=== PATIENT | male | born 1950 | race Caucasian/White ===

== ENCOUNTER 2023-07-24 07:33 | Outpatient (OUT) | payer MEDICARE, SELFPAY ==
[2023-07-24 07:51] LABS: Basophils Absolute Auto 0.1 10^3/uL (0.0-0.1); Basophils Percent Auto 0.7 % (0.2-2.0); Eosinophils Absolute Auto 0.1 10^3/uL (0.0-0.7); Eosinophils Percent Auto 1.7 % (0.9-7.0); Hematocrit 41.7 % (42.0-54.0); Hemoglobin 14.4 g/dL (14.0-18.0); Immature Granulocytes Abs Auto 0.06 10^3/uL (0.00-0.03); Immature Granulocytes Pct Auto 0.7 % (0.0-0.5); Lymphocytes Absolute Auto 2.2 10^3/uL (1.2-3.8); Lymphocytes Percent Auto 26.5 % (20.5-60.0); Mean Corpuscular HGB Conc 34.5 g/dL (29.9-35.2); Mean Corpuscular Hemoglobin 30.4 pg (25.9-34.0); Mean Platelet Volume 10.4 fL (9.5-13.5); Monocytes Absolute Auto 0.8 10^3/uL (0.3-0.8); Monocytes Percent Auto 9.2 % (1.7-12.0); Neutrophils Percent Auto 61.2 % (43.0-75.0); Platelet Count 251 10^3/uL (150-450); Red Blood Count 4.74 10^6/uL (4.70-6.10); White Blood Count 8.2 10^3/uL (4.0-11.0)
[2023-07-24 08:12] LABS: Estimated Average Glucose 134 mg/dL; Glycohemoglobin A1C 6.3 % (4.5-6.2)
[2023-07-24 08:17] LABS: Microalbumin Urine Random 12.9 mg/dL (<=30.0)
[2023-07-24 08:25] LABS: Anion Gap 12.1; BUN Creatinine Ratio 9.7; Calcium 8.3 mg/dL (8.5-10.1); Carbon Dioxide 28.9 mmol/L (21.0-32.0); Chloride 104 mmol/L (98-107); Chol HDL Ratio 2.3; Cholesterol 139 mg/dL (<=200); Estimated GFR (African America >60 (>=60); Estimated GFR (Non-African Ame >60 (>=60); Glucose 184 mg/dL (74-106); HDL Cholesterol 60 mg/dL (40-60); LDL Cholesterol Calculated 59.6 mg/dL; Sodium 141 mmol/L (136-145); Triglycerides 97 mg/dL (<=150); VLDL CHOLESTEROL 19.4 mg/dL
--- OUTSIDE RECORDS SUMMARY | 2023-07-29 05:25 | XMS_ITS | CCD ---
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 Name Role Phone ELISA, DR PORTILLO Primary Care Unavailable ELISA, DR PORTILLO Admitting Unavailable ELISA, DR PORTILLO Attending Unavailable ELSIA, DR PORTILLO Attending Unavailable ELISA, DR PORTILLO Consulting Unavailable ELISA, DR PORTILLO Primary Care Unavailable BALL, DR PORTILLO Admitting Unavailable ELISA, DR PORTILLO Primary Care Unavailable MISC, DR BALL Attending Unavailable MISC, DR BALL Consulting Unavailable MISC, DR BALL Admitting Unavailable ELISA, DR PORTILLO Primary Care Unavailable ELISA, DR PORTILLO Admitting Unavailable ELISA, DR PORTILLO Attending Unavailable Elisa, Byron Unavailable Medications Current Medications Medication Drug Class(es) Dates Sig (Normalized) Sig (Original) amLODIPine 5 mg oral tablet (2 sources) Dihydropyridine Calcium Channel Marium take 1 tablet by mouth once daily amLODIPine Besylate 5 MG TAKE 1 TABLET BY MOUTH EVERY DAY Active atenolol 50 mg oral tablet (2 sources) beta-Adrenergic Marium take 1 tablet by mouth every twenty-four hours Atenolol 50 MG 1 tablet Orally Once a day Active glimepiride 2 mg oral tablet (2 sources) Sulfonylurea Glimepiride 2 MG TAKE 1 TABLET BY MOUTH 30 MINUTES BEFORE FIRST MEAL OF DAY Active hydroCHLOROthiazide 12.5 mg / lisinopril 20 mg oral tablet (2 sources) Thiazide Diuretic, Angiotensin Converting Enzyme Inhibitor take 2 tablets by mouth once daily Lisinopril-hydr oCHLOROthiazide 20-12.5 MG TAKE 2 TABLETS BY MOUTH DAILY Active metFORMIN hydrochloride 1000 mg oral tablet (2 sources) Biguanide take 1 tablet by mouth every twelve hours metFORMIN HCl 1000 MG 1 tablet with a meal Orally twice a day Active sildenafil 100 mg oral tablet (2 sources) Phosphodiesterase 5 Inhibitor Start: 2 take 1 tablet by mouth every twenty-four hours Viagra 100 MG 1 tablet as needed Orally Once a day for 0 days Jul, Active Completed/Discontinued Medications Medication Drug Class(es) Dates Sig (Normalized) Sig (Original) azithromycin 250 mg oral tablet (2 sources) Macrolide Antimicrobial Start: 07-30-2022 take 1 tablet by mouth once daily Azithromycin 250 MG azithromycin 250mg, 2 (two) Tablet today followed by 1 daily # 6, 07/30/2022, No Refill. Active Oral today followed by 1 daily for 5 Jul, Not-Taking/PRN bacitracin 0.5 unt/mg topical ointment (2 sources) Start: 02-15-2018 Bacitracin 500 UNIT/GM 1 application to affected area Externally Once a day for 7 days Feb, Not-Taking/PRN cephalexin 500 mg oral capsule (2 sources) Cephalosporin Antibacterial Start: 02-15-2018 take 1 capsule by mouth every six hours Cephalexin 500 MG 1 capsule Orally every 6 hrs for 10 day(s) Feb, Not-Taking/PRN Isosorbide Dinitrate (2 sources) Nitrate Vasodilator Isosorbide Dinitrate Not-Taking/PRN triamcinolone acetonide 1 mg/ml topical cream (2 sources) Corticosteroid Start: 02-15-2018 Triamcinolone Acetonide 0.1 % 1 application to affected area Externally Twice a day for 7 days Feb, Not-Taking/PRN Problems Active Problems Problem Classification Problem Date Documented Da te Episodic/Chronic Diabetes mellitus with complications (4 sources) Type 2 diabetes mellitus with hyperglycemia; Translations: [Type 2 diabetes mellitus] Onset: 07-26-2022 Chronic Disorders of lipid metabolism (7 sources) Mixed hyperlipidemia; Translations: [Hypercholesterolem ia] Onset: 07-21-2022 Chronic Essential hypertension (4 sources) Essential (primary) hypertension; Translations: [Essential hypertension] Onset: 07-26-2022 Chronic Genitourinary symptoms and ill-defined conditions (1 source) Nocturia Episodic Hyperplasia of prostate (3 sources) Nocturia due to benign prostatic hypertrophy; Translations: [Benign prostatic hyperplasia with lower urinary tract symptoms] Chronic Other aftercare (1 source) 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; Translations: [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 CURRENT DRUG THERAPY] Onset: 07-26-2022 Episodic Other screening for suspected conditions (not mental disorders or infectious disease) (2 sources) Encounter for screening for malignant neoplasm of prostate; Translations: [ENC SCREEN MALIG NEOPLASM PROSTATE] Onset: 07-26-2022 Episodic Residual codes; unclassified (1 source) Procedure and treatment not carried out because of patient's decision for unspecified reasons Episodic Unclassified (2 sources) CONTACT W/AND (SUSP) EXPOS COVID-19; Translations: [CONTACT W/AND (SUSP) EXPOS COVID-19] Onset: 08-14-2021 Viral infection (1 source) COVID-19; Translations: [COVID-19] Onset: 08-14-2021 Past or Other Problems Problem Classification Problem Date Documented Da te Episodic/Chronic Unclassified (1 source) CONTACT W/AND (SUSP) EXPOS COVID-19; Translations: [CONTACT W/AND (SUSP) EXPOS COVID-19] Onset: 08-08-2021 Results Test Name Value Interpretation Reference Range Facil ity CBC AUTO DIFFon 07-21-2022 BASO # 0.1 103/ul Normal 0.0-0.[address] [facility] Comment on above: Performed By: #### C BC #### [facility] [address] [place] [address] Dr. Eligio Carr Basophils/100 WBC (Bld) 0.8 % Normal 0.2-2.0 [facility] Comment on above: Performed By: #### C BC #### [facility] [address] [place] [address] Dr. Eligio Carr EO # 0.2 103/ul Normal 0.0-0.7 [facility] Comment on above: Performed By: #### C BC #### [facility] [address] [place] [address] Dr. Eligio Carr Eosinophils/100 WBC (Bld) 2.3 % Normal 0.9-7.0 [facility] Comment on above: Performed By: #### C BC #### [facility] [address] [place] [address] Dr. Eligio Carr Erythrocyte distribution wid th (RBC) [Ratio] 12.9 % Normal 11.0-15.0 [facility] Comment on above: Performed By: #### C BC #### [facility] [address] [address] [address] Eligio Carr Hematocrit (Bld) [Volume fraction] 44.7 % Normal 4 2.0-54.0 [facility] Comment on above: Performed By: #### C BC #### [facility] [address] [address] [address] Eligio Carr Hemoglobin (Bld) [Mass/Vol] 15.8 g/dL Normal 14.0-18. 0 [facility] Comment on above: Performed By: #### C BC #### [facility] [address] [address] [address] Eligio Carr IG # 0.05 10e3/ul Critically high 0.00-0.03 [facility] Comment on above: Performed By: #### C BC #### [facility] [address] [place] [address] Dr. Eligio Carr IG % 0.6 % Critically high 0.0-0.5 [facility] Comment on above: Performed By: #### C BC #### [facility] [address] [place] [address] Dr. Eligio Carr LYMPH # 2.1 103/ul Normal 1.2-3.8 [facility] Comment on above: Performed By: #### C BC #### [facility] [address] [place] [address] Dr. Eligio Carr Lymphocytes/100 WBC (Bld) 25.5 % Normal 20.5-60.0 [facility] Comment on above: Performed By: #### C BC #### [facility] [address] [place] [address] Dr. Eligio Carr MANUAL DIFF REQ NO Normal The [facility] Comment on above: Performed By: #### C BC #### [facility] [address] [place] [address] Dr. Eligio Carr MCH (RBC) [Entitic mass] 30.7 pg Normal 25.9-34.0 [facility] Comment on above: Performed By: #### C BC #### [facility] [address] [address] [address] Eligio Carr MCHC (RBC) [Mass/Vol] 35.3 g/dL Critically high 29.9-35.2 [facility] Comment on above: Performed By: #### C BC #### [facility] [address] [place] [address] Dr. Eligio Carr MCV (RBC) [Entitic vol] 87.0 fL Normal 80.0-94.0 [facility] Comment on above: Performed By: #### C BC #### [facility] [address] [place] [address] Dr. Eligio Carr MONO # 0.7 103/ul Normal 0.3-0.[address] [facility] Comment on above: Performed By: #### C BC #### [facility] [address] [place] [address] Dr. Eligio Carr Monocytes/100 WBC (Bld) 8.8 % Normal 1.7-12.0 [facility] Comment on above: Performed By: #### C BC #### [facility] [address] [place] [address] Dr. Eligio Carr NEUT # 5.1 103/ul Normal 1.4-6.5 [facility] Comment on above: Performed By: #### C BC #### [facility] [address] [place] [address] Dr. Eligio Carr Neutrophils/100 WBC (Bld) 62.0 % Normal 43.0-75.0 [facility] Comment on above: Performed By: #### C BC #### [facility] [address] [place] [address] Dr. Eligio Carr Platelet mean volume (Bld) [ Entitic vol] 10.3 fL Normal 9.5-13.5 The [facility] Comment on above: Performed By: #### C BC #### [facility] [address] [place] [address] Dr. Eligio Carr PLT 226 103/ul Normal 150-450 [facility] Comment on above: Performed By: #### C BC #### [facility] [address] [address] [address] Eligio Carr RBC 5.14 106/ul Normal 4.70-6.10 [facility] Comment on above: Performed By: #### C BC #### [facility] [address] [place] [address] Dr. Eligio Carr WBC 8.3 103/ul Normal 4.0-11.0 [facility] Comment on above: Performed By: #### C BC #### [facility] [address] [place] [address] Dr. Eligio Carr DIRECT LDLon 07-21-2022 Cholesterol in LDL [Mass/Vol] 60 mg/dL Normal [facility] Comment on above: Performed By: #### B LUISA DLDL #### [facility] [address] [place] [address] Dr. Eligio Carr DLDL NORMAL SEE BELOW Normal [facility] Comment on above: Result Comment: <100 mg/dl OPTIMAL 100 - 129 mg/dl NEAR OR ABOVE OPTIMAL 130 - 159 mg/dl BORDERLINE HIGH 160 - 189 mg/dl HIGH >190 mg/dl VERY HIGH Performed By: #### B LUISA DLDL #### [facility] [address] [place] [address] Dr. Eligio Carr GLYCOHEMOGLOBIN A1Con 2021 ADA RECOMMENDATION SEE BELOW Normal The [facility] Comment on above: Result Comment: ADA RECOMMENDED LIMIT 4.0 - 6.0 ADA THERAPEUTIC TARGET < 7.0 ACTION SUGGESTED > 7.0 Performed By: #### A 1C #### [facility] [address] [place] [address] Dr. Eligio Carr Glucose [Mass/Vol] 128 mg/dL Normal The [facility] Comment on above: Performed By: #### A 1C #### [facility] [address] [place] [address] Dr. Eligio Carr HbA1c (Bld) [Mass fraction] 6.1 % Normal 4.5-6.2 [facility] Comment on above: Performed By: #### A 1C #### [facility] [address] [place] [address] Dr. Eligio Carr MICROALBUMIN, RAND URon 12- mALB 17.4 mg/L Normal <=30.0 [facility] Comment on above: Performed By: #### M ALBR #### [facility] [address] [address] [address] Eligio Carr PROF CHEM 8 (BAS METB)on Anion gap [Moles/Vol] 11.7 mmol/L Normal [facility] Comment on above: Performed By: #### B MP, DLDL #### [facility] [address] [address] [address] Eligio Carr Calcium [Mass/Vol] 8.7 mg/dL Normal 8.5-10.1 [facility] Comment on above: Performed By: #### B MP, DLDL #### [facility] [address] [place] [address] Dr. Eligio Carr Chloride [Moles/Vol] 99 mmol/L Normal 98-107 [facility] Comment on above: Performed By: #### B MP, DLDL #### [facility] [address] [address] [address] Eligio Carr CO2 [Moles/Vol] 29.3 mmol/L Normal 21.0-32.0 [facility] Comment on above: Performed By: #### B MP, DLDL #### [facility] [address] [address] [address] Eligio Carr Creatinine [Mass/Vol] 1.02 mg/dL Normal 0.70-1.30 [facility] Comment on above: Performed By: #### B MP, DLDL #### [facility] [address] [address] [address] Eligio Carr EGFR-AF MALDIVIAN >60 Normal >=60 [facility] Comment on above: Performed By: #### B MP, DLDL #### [facility] [address] [place] [address] Dr. Eligio Carr EGFR-NON AF MALDIVIAN >60 Normal >=60 [facility] Comment on above: Performed By: #### B MP, DLDL #### [facility] [address] [address] [address] Eligio Carr Glucose [Mass/Vol] 179 mg/dL Critically high 74-106 [facility] Comment on above: Performed By: #### B MP, DLDL #### [facility] [address] [address] [address] Eligio Carr Potassium [Moles/Vol] 4.0 mmol/L Normal 3.5-5.1 [facility] Comment on above: Performed By: #### B MP, DLDL #### [facility] [address] [address] [address] Eligio Carr Sodium [Moles/Vol] 136 mmol/L Normal 136-145 [facility] Comment on above: Performed By: #### B MP, DLDL #### [facility] [address] [place] [address] Dr. Eligio Carr Urea nitrogen [Mass/Vol] 11.0 mg/dL Normal 7.0-18.0 [facility] Comment on above: Performed By: #### B MP, DLDL #### [facility] [address] [address] [address] Eligio Carr Urea nitrogen/Creatinine [Mass ratio] 10.8 mg/mg Normal [facility] Comment on above: Performed By: #### B MP, DLDL #### [facility] [address] [place] [address] Dr. Eligio Carr Covid-19 PCR (CVDTB)on 07-12 SARS-CoV-2 (COVID-19) RNA JOSE+probe Ql (Unsp spec) Detected Critically abnormal NOT DETECTED [facility] Comment on above: Result Comment: This test is not yet approved or cleared by the [place] FDA. When there are no FDA-approved or cleared tests available, and other criteria are met, FDA can make tests available under an emergency access mechanism called an Emergency Use Authorization (EUA). The EUA for this test is supported by the Rodent [employer] Worker of Health and Human Service's (HHS's) declaration that circumstances exist to justify the emergency use of in vitro diagnostics for the detection and/or diagnosis of the virus that causes COVID-19. This EUA will remain in effect (meaning this test can be used) for the duration of the COVID-19 declaration justifying emergency of IVDs, unless it is terminated or revoked by FDA (after which the test may no longer be used). Performed By: #### C [facility] #### [facility] [address] [place] [address] Dr. Eligio Carr Vital Signs Date Time Vital Sign Value Performing Clinician Facility 07-20-2023 08:30-0500 Body height 180.34 cm Byron Pérez Other [facility] Other 07-20-2023 08:30-0500 Body mass index (BMI) [Ratio] 37.65 kg/m2 Byron Pérez Other [facility] Other 07-20-2023 08:30-0500 Body weight 122.47 kg Byron Pérez Other [facility] Other 07-20-2023 08:30-0500 Diastolic blood pressure 90 mm[Hg] Byron Elisa Other [facility] Other 07-20-2023 08:30-0500 Respiratory rate 12 /min Byron Pérez Other [facility] Other 07-20-2023 08:30-0500 Systolic blood pressure 166 mm[Hg] Byron Elisa Other [facility] Other Encounters Encounter Date Encounter Type Care Provider Facility Start: 07-27-2023 End: 07-27-2023 ambulatory Byron Elisa Other [facility] Other Start: 07-27-2023 Telephone encounter [facility] Start: 07-20-2023 End: 07-20-2023 ambulatory Byron Elisa Other [facility] Other Start: 07-20-2023 Patient encounter procedure [facility] Start: 07-21-2022 End: 07-22-[address] BYRON PÉREZ Facility:[facility] Start: 04-03-[address] BYRON PÉREZ Facili ty:[facility] Start: 02-12-[address] BYRON Mccarthy ty:[facility] Start: 08-08-2021 End: 08-08-[address] BYRON PÉREZ Facility:[facility] Procedures Date Procedure Procedure Detail Performing Clinician Start: 07-21-[address] FERNANDEZ IN ELISA Comment on above: Performed By: #### P [facility] #### [facility] [address] [place] [address] Dr. Eligio Carr Immunizations Immunization Date Immunization Notes Care Provider Fa jayy 07-21-2018 influenza virus vaccine, split virus (incl. purified surface antigen) Byron P[facility]rez Other [facility] Other 05-27-2017 influenza virus vaccine, split virus (incl. purified surface antigen) Byron Pérez Other [facility] Other 06-25-2015 pneumococcal conjuga te vaccine, 13 valent Byron Pérez Other [facility] Other 06-16-2014 influenza virus vaccine, split virus (incl. purified surface antigen) Byron Pérez Other [facility] Other 06-15-2013 pneumococcal polysaccharide vaccine, 23 valent Byron Pérez Other [facility] Other 06-15-2013 tetanus and diphther ia toxoids, adsorbed, preservative free, for adult use (5 Lf of tetanus toxoid and 2 Lf of diphtheria toxoid) Byron Pérez Other [facility] Other Payers Date Payer Category Payer Medicare [id number] 1961 Self-pay [id number] 1961 Unknown [id number] 1950 Unknown [id number] [id number] 1950 Unknown [id number] [id number] 1950 Unknown [id number] [id number] 1950 Unknown [id number] [id number] Social History Date Type Detail Facility Unknown if ever smoked [facility] Other Sex Assigned At Sex Assigned At Bir th [facility] Other Evaluation note 07-20-2023 Note Date & Type Note Facility 07-20-2023 Evaluation note Encounter Date Diagnosis Assessment Notes Jul, Medicare annual wellness visit, subsequent (ICD-10 - Z00.00) Personalized health advice was given to the beneficiary including a written plan for screenings discussed and provided. Advanced care planning reviewed and/or information given as requested. Additional counseling was provided here today in regards to, [ ]. The above visit was performed by [ ], under direct supervision of [ ]. Document reviewed and amended by provider signed below. Jul, Primary hypertension (ICD-10 - I10) This patient is instructed to consume a healthy, low-fat, low-salt diet. They are also encouraged to continue exercise to achieve/maintain a normal BMI. Patient is instructed on home BP measurements: - rest for 5 minutes w/o talking- positioned w/ feet on floor and arm supported- average best 2/3 readings w/ goal < 135/85 Stop in office after couple weeks for recheck Jul, Hypercholesteremia (ICD-10 - E78.00) Instructed on diet and exercise.Discusse d the beneficial effects of lowering cholesterol in reducing the risk for cerebrovascular and cardiovascular disease. Jul, Type 2 diabetes mellitus with hyperglycemia, without long-term current use of insulin (ICD-10 - E11.65) This patient is following a comprehensive diabetic treatment plan. They are checking their feet daily for calluses and nonhealing ulcers. They are being seen for yearly dilated eye examinations. Goals: SBP less than 130, LDL less than 100, FBS less than 140, A1C less than 7%. They are checking their BS daily, will which are reviewed at the office visit. Continue regular routine monitoring of A1C,] Microalbumin, Dilated eye exam and Foot exam Jul, Nocturia (ICD-10 - R35.1) Jul, Benign prostatic hyperplasia with lower urinary tract symptoms (ICD-10 - N40.1) Symptoms tolerable Denies dysuria or hematuria Jul, Screening PSA (prostate specific antigen) (ICD-10 - Z12.5) Yearly PSA. He is aware that PSA can be elevated w/ cancer, infection and enlarged prostates. If his level is elevated, while there are many causes, it is required to r/o cancer. He would be referred to Urology for MRI and TRUS/bx or possibly continued monitoring. He is agreeable to this plan of action Jul, Colon cancer screening declined (ICD-10 - Z53.20) [facility] Other Evaluation note Note Date & Type Note Facility Evaluation note No Information [email or web address] Other History general Narrative - Reported Note Date & Type Note Facility History general Narrative - Reported Type Medical History diabetes mallitus Medical History hypertension Surgical History detached retina Surgical History cyst removal Hospitalization History see surgical history [facility] Other Summary Purpose Family History No Family History Records Found Advance Directives No Advanced Directives Records Found Additional Source Comments (unrecognized sect ion and content) No Status Records Found INFORMATION SOURCE (unrecogn ized section and content) DATE CREATED AUTHOR 08/01/2022 The Ekaterina maier REASON FOR VISIT (unrecogniz ed section and content) [facility] results FOR RECORDS PERTAINING TO PATIENTS WHO ARE OR HAVE BEEN ENROLLED IN A CHEMICAL DEPENDENCY/SUBSTANCEABUSE PROGRAM, SOME INFORMATION MAY BE OMITTED. This clinical summary was aggregated from multiple sources. Caution should be exercised in using it in the provision of clinical care. This summary normalizes information from multiple sources, and as a consequence, information in this document may materially change the coding, format and clinical context of patient data. In addition, data may be omitted in some cases. CLINICAL DECISIONS SHOULD BE BASED ON THE PRIMARY CLINICAL RECORDS. [facility]. provides no warranty or guarantee of the accuracy or completeness of information in this document.
== END 2023-07-24 07:34 | disposition home or self-care (01) ==
LOC: LAB 07:33
PROVIDERS: PCP Internal Medicine; Visit Provider Internal Medicine
DX: E78.00 Pure hypercholesterolemia, unspecified (principal); E11.65 Type 2 diabetes mellitus with hyperglycemia; I10 Essential (primary) hypertension; Z12.5 Encounter for screening for malignant neoplasm of prostate
CPT/HCPCS: 36415; 80048; 80061; 82043; 83036; 85025; G0103

== ENCOUNTER 2024-08-15 07:49 | Outpatient (OUT) | payer MEDICARE, SELFPAY ==
[2024-08-15 08:11] LABS: Basophils Absolute Auto 0.1 10^3/uL (0.0-0.1); Basophils Percent Auto 0.8 % (0.2-2.0); Eosinophils Absolute Auto 0.3 10^3/uL (0.0-0.7); Eosinophils Percent Auto 3.6 % (0.9-7.0); Hematocrit 43.4 % (42.0-54.0); Hemoglobin 15.5 g/dL (14.0-18.0); Immature Granulocytes Abs Auto 0.04 10^3/uL (0.00-0.03); Immature Granulocytes Pct Auto 0.6 % (0.0-0.5); Lymphocytes Percent Auto 28.5 % (20.5-60.0); Mean Corpuscular HGB Conc 35.7 g/dL (29.9-35.2); Mean Corpuscular Hemoglobin 31.4 pg (25.9-34.0); Mean Corpuscular Volume 87.9 fL (80.0-94.0); Mean Platelet Volume 10.4 fL (9.5-13.5); Monocytes Absolute Auto 0.6 10^3/uL (0.3-0.8); Monocytes Percent Auto 8.6 % (1.7-12.0); Neutrophils Absolute Auto 4.1 10^3/uL (1.4-6.5); Neutrophils Percent Auto 57.9 % (43.0-75.0); Platelet Count 231 10^3/uL (150-450); Red Blood Count 4.94 10^6/uL (4.70-6.10); White Blood Count 7.1 10^3/uL (4.0-11.0)
[2024-08-15 08:27] LABS: Microalbum Creatinine Ratio Ur 180.3 mg/g (0.0-29.9); Microalbumin Urine Random 15.2 mg/dL (<=30.0)
[2024-08-15 08:30] LABS: Alanine Aminotransferase 24 U/L (16-63); Albumin Globulin Ratio 1.2; Albumin Level 3.6 g/dL (3.4-5.0); Alkaline Phosphatase 56 U/L (46-116); Anion Gap 12.9; Aspartate Amino Transferase 15 U/L (15-37); BUN Creatinine Ratio 10.9; Calcium 9.1 mg/dL (8.5-10.1); Carbon Dioxide 25.1 mmol/L (21.0-32.0); Chloride 104 mmol/L (98-107); Chol HDL Ratio 2.3; Cholesterol 140 mg/dL (<=200); Estimated GFR (African America >60 (>=60 mL/min/1.73m^2); Estimated GFR (Non-African Ame 59 (>=60 mL/min/1.73m^2); Globulin 3.1 g/dL; Glucose 241 mg/dL (74-106); HDL Cholesterol 60 mg/dL (40-60); LDL Cholesterol Calculated 61.8 mg/dL; Sodium 138 mmol/L (136-145); Total Protein 6.7 g/dL (6.4-8.2); Triglycerides 91 mg/dL (<=150); VLDL CHOLESTEROL 18.2 mg/dL
[2024-08-15 08:34] LABS: Estimated Average Glucose 134 mg/dL; Glycohemoglobin A1C 6.3 % (4.5-6.2)
[2024-08-15 09:01] LABS: Prostate Specific Antigen Scrn 1.51 ng/mL (<=4.00)
== END 2024-08-15 07:50 | disposition home or self-care (01) ==
PROVIDERS: PCP Internal Medicine; Visit Provider Internal Medicine
DX: E78.00 Pure hypercholesterolemia, unspecified (principal); E11.65 Type 2 diabetes mellitus with hyperglycemia; I10 Essential (primary) hypertension; Z12.5 Encounter for screening for malignant neoplasm of prostate
CPT/HCPCS: 36415; 80053; 80061; 82043; 82570; 83036; 85025; G0103